=== PATIENT | female | born 1985 | race Caucasian/White ===

== ENCOUNTER 2017-06-06 12:23 | Emergency (ER) | payer MEDICAID ==
[~2017-06-06] VITALS: Ht 172.7 cm; Wt 147.4 kg
[~2017-06-06 12:23] MED LIST: GLYBURIDE 5MG TA5 MG PO; IBUPROFEN800 MG PO; LEVOTHYROXINE0.1 M1 PO; MECLIZINE 25MG25 MG PO; MEDROL 4MG. DOSE4 MG PO; PENICILLIN VK500 M1 PO; ZITHROMAX Z PA250 MG PO
--- NOTE | 2017-06-06 12:36 | Urgent Treatment Center Report ---
History of Present Issue Date/Time Seen by Provider 06/06/17 1234 Visit Reason Pt arrived:Walked Presenting Problem:C/O SORE THROAT SINCE YESTERDAY Location if Accident: Onset of symptoms date/time:/ or onset unknown for:MEDICAL HX UNKNOWN Have you (or family members/close friends) recently traveled outside the [place]? N If Yes, where/when: Have you had exposure to infectious disease within the past month? TB? Other? Specify: State that she noticed yesterday that she began to have a sore throat State that when she woke up this morning she felt feverish and she looked in the mirror and seen white patches all over her tonsils State that she has had strep several times and this feels just like it did then ALLERGIES Coded Allergies: Cephalosporins (04/04/17) Home Medications Active Scripts MECLIZINE HCL (Meclizine 25MG) 25 MG PO BID #20 TABLET Prov: 04/04/17 Azithromycin (Zithromycin (Z-MARY) 250MG Tab) 250 MG PO DAILY #6 TAB Prov: 04/04/17 Methylprednisolone (Medrol Dose Mary) 4 MG PO UD #1 MARY Prov: 04/04/17 Reported Medications Glyburide (Glyburide 5MG) 5 MG PO BID #30 Levothyroxine Sodium (Levothyroxine 0.1MG) 0.1 MG PO DAILY #30 History Medical History General CAD? No Angina: No NM: No Hypertension? No Hyperlipidemia? No CHF? No DVT? No PE? No COPD? No Asthma? No Anemia? No GERD? No Gastric ulcers? No GI Bleed? No Hernia? No Thyroid Problems? No Hypothyroidism? No CVA? No Seizures? No Diabetes? Yes Insulin Dependent: No Insulin Pump: No Home FSBS? Yes Renal Insuffiency? No UTI? No Stones? No BPH? No GB Disease: No Nephritic Syndrome? No Asplenia? No Hepatitis? No Sickle Cell Disease? No Arthritis? No Migraines? No Cataracts? No Glaucoma? No MRSA? No HIV? No TB? No Anxiety? No Depression? No Cancer? No More? 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 Physical Exam Vital Signs Vital Signs Date Time Temp Pulse Resp B/P Pulse O2 O2 Flow FiO2 Ox Delivery Rate 06/06 1231 97.0 96 16 146/95 97 General Appearance normal appearance, WD/WN, no apparent distress Ear, Nose, Throat tonsillar exudate, tonsillar swelling Respiratory Status Yes: trachea midline, chest symmetrical, non tender chest. No: respiratory distress. Cardiovascular normal exam, regular rate/rhythm Neurologic alert, normal exam, oriented x 3 Medical Decision Making LABS/Meds/Orders Pt receiving controlled substance in ED? No Results/Orders Laboratory Tests 06/06/17 1227: Group A Strep Screen NOT DETECTED Orders Procedure Date/time Status [facility] STREP SCREEN 06/06 1235 Complete Progress [facility] Progress Notes Comment Strep test was negative however exudate noted on tonsils which indicates need for antibiotic treatment Departure Departure Time of Disposition 1250 Disposition DC Home or Self Care(routine) Clinical Impression Primary Impression: Upper respiratory infection Qualifiers: URI type: acute pharyngitis Pharyngitis/tonsillitis etiology: unspecified etiology Qualified Code: J02.9 - Acute pharyngitis, unspecified Condition STABLE Referrals Eris CUELLAR,A.C. (Family): 3 Days-Call Office if no improvement Patient Instructions Sore Throat Additional Instructions * Monitor Temp. Tylenol and/or Ibuprofen as needed. ER if fever is no less than 101 despite alternating Tylenol and Ibuprofen * Encourage fluids, water, Gatorade, powerade, pedialyte if infant/toddler/or child * Warm salt water gargles for throat irritation *Warm fluids *Sore throat lozenges *Sleep elevated *humidifier or vaporizer *Flonase 2 sprays each nostril daily but may take 2-3 days to notice improvement with it *Bromfed may cause drowsiness. Know how it effect you or your child. Before driving, caring for small children or sending your child to school Follow up IMMEDIATELY for new or worsening of symptoms OR no noticeable improvement over the next 48-72 hours. 911 immediately for any life threatening symptoms such as chest pain or difficulty breathing Discharge Counseling Counseled pt/family regarding diagnosis, test results, medications/RX, home care Prescriptions Current Visit Scripts Azithromycin (Zithromycin (Z-MARY) 250MG Tab) 250 MG PO DAILY #6 TAB TAKE TWO (2) TABLETS ON DAY 1, THEN ONE (1) TABLET DAY #2 THRU #5 Methylprednisolone (Medrol Dose Mary) 4 MG PO UD #1 MARY TAKE DIRECTED ON PACKAGING at 1255
--- NOTE | 2017-06-06 12:36 | Urgent Treatment Center Report ---
History of Present Issue Date/Time Seen by Provider 06/06/17 1234 Visit Reason Pt arrived:Walked Presenting Problem:C/O SORE THROAT SINCE YESTERDAY Location if Accident: Onset of symptoms date/time:/ or onset unknown for:MEDICAL HX UNKNOWN Have you (or family members/close friends) recently traveled outside the [place]? N If Yes, where/when: Have you had exposure to infectious disease within the past month? TB? Other? Specify: State that she noticed yesterday that she began to have a sore throat State that when she woke up this morning she felt feverish and she looked in the mirror and seen white patches all over her tonsils State that she has had strep several times and this feels just like it did then ALLERGIES Coded Allergies: Cephalosporins (04/04/17) Home Medications Active Scripts MECLIZINE HCL (Meclizine 25MG) 25 MG PO BID #20 TABLET Prov: 04/04/17 Azithromycin (Zithromycin (Z-MARY) 250MG Tab) 250 MG PO DAILY #6 TAB Prov: 04/04/17 Methylprednisolone (Medrol Dose Mray) 4 MG PO UD #1 MARY Prov: 04/04/17 Reported Medications Glyburide (Glyburide 5MG) 5 MG PO BID #30 Levothyroxine Sodium (Levothyroxine 0.1MG) 0.1 MG PO DAILY #30 History Medical History General CAD? No Angina: No CO: No Hypertension? No Hyperlipidemia? No CHF? No DVT? No PE? No COPD? No Asthma? No Anemia? No GERD? No Gastric ulcers? No GI Bleed? No Hernia? No Thyroid Problems? No Hypothyroidism? No CVA? No Seizures? No Diabetes? Yes Insulin Dependent: No Insulin Pump: No Home FSBS? Yes Renal Insuffiency? No UTI? No Stones? No BPH? No GB Disease: No Nephritic Syndrome? No Asplenia? No Hepatitis? No Sickle Cell Disease? No Arthritis? No Migraines? No Cataracts? No Glaucoma? No MRSA? No HIV? No TB? No Anxiety? No Depression? No Cancer? No More? 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 Physical Exam Vital Signs Vital Signs Date Time Temp Pulse Resp B/P Pulse O2 O2 Flow FiO2 Ox Delivery Rate 06/06 1231 97.0 96 16 146/95 97 General Appearance normal appearance, WD/WN, no apparent distress Ear, Nose, Throat tonsillar exudate, tonsillar swelling Respiratory Status Yes: trachea midline, chest symmetrical, non tender chest. No: respiratory distress. Cardiovascular normal exam, regular rate/rhythm Neurologic alert, normal exam, oriented x 3 Medical Decision Making LABS/Meds/Orders Pt receiving controlled substance in ED? No Results/Orders Laboratory Tests 06/06/17 1227: Group A Strep Screen NOT DETECTED Orders Procedure Date/time Status [facility] STREP SCREEN 06/06 1235 Complete Progress [facility] Progress Notes Comment Strep test was negative however exudate noted on tonsils which indicates need for antibiotic treatment Departure Departure Time of Disposition 1250 Disposition DC Home or Self Care(routine) Clinical Impression Primary Impression: Upper respiratory infection Qualifiers: URI type: acute pharyngitis Pharyngitis/tonsillitis etiology: unspecified etiology Qualified Code: J02.9 - Acute pharyngitis, unspecified Condition STABLE Referrals Eris CUELLAR,A.C. (Family): 3 Days-Call Office if no improvement Patient Instructions Sore Throat Additional Instructions * Monitor Temp. Tylenol and/or Ibuprofen as needed. ER if fever is no less than 101 despite alternating Tylenol and Ibuprofen * Encourage fluids, water, Gatorade, powerade, pedialyte if infant/toddler/or child * Warm salt water gargles for throat irritation *Warm fluids *Sore throat lozenges *Sleep elevated *humidifier or vaporizer *Flonase 2 sprays each nostril daily but may take 2-3 days to notice improvement with it *Bromfed may cause drowsiness. Know how it effect you or your child. Before driving, caring for small children or sending your child to school Follow up IMMEDIATELY for new or worsening of symptoms OR no noticeable improvement over the next 48-72 hours. 911 immediately for any life threatening symptoms such as chest pain or difficulty breathing Discharge Counseling Counseled pt/family regarding diagnosis, test results, medications/RX, home care Prescriptions Current Visit Scripts Azithromycin (Zithromycin (Z-MARY) 250MG Tab) 250 MG PO DAILY #6 TAB TAKE TWO (2) TABLETS ON DAY 1, THEN ONE (1) TABLET DAY #2 THRU #5 Methylprednisolone (Medrol Dose Mary) 4 MG PO UD #1 MARY TAKE DIRECTED ON PACKAGING at 1251
[2017-06-06] MEDS ORDERED: ZITHROMAX Z PA250 MG PO (12:54)
[2017-06-06] MEDS ORDERED: MEDROL 4MG. DOSE4 MG PO (12:54)
[2017-06-06 12:56] VITALS: BP 146/95
--- OUTSIDE RECORDS SUMMARY | 2017-06-08 16:46 | External Medical Summary Rpt | CCD ---
Author Author , JEAN Zuñiga JEAN Address Unknown Phone [email or web address] Care Team Providers Care Electronic Industrial Controls Mechanic Name Role Phone A Gwyn LI MD PSC, A Unavailable Unavailable Gwyn LI MD [facility] TER, HUSEYIN TER Unavailable Unavailable [facility], [facility] Unavailable Unavailable [facility], [facility] Unavailable Unavailable [facility], Unavailable Unavailable [facility] KILPELA, KILPELA Unavailable Unavailable KILPELA JEA, KILPELA Unavailable Unavailable JEA KILPELA JEA, KILPELA Unavailable Unavailable JEA MOR SAURAV, MOR SAURAV Unavailable Unavailable [facility], Unavailable Unavailable [facility], Unavailable Unavailable [facility] Purpose Continuity of Care Document - 12-31-2013 through 2016 Problems Code Diagnosis DOS Provider Status H6691 OTITIS 04-04-2017 [facility]NSPEC[facility] RIGHT EAR R42 DIZZINESS 04-04-2017 [facility] GIDDINESS [facility] 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 COMPLICATIO NS K029 DENTAL 02-23-2017 [facility] UNSPEC[facility] R17697 PAIN IN 08-29-2016 A Gwyn LI LEFT FOOT [facility] J0190 ACUTE 09-02-2015 [facility] J309 ALLERGIC 09-01-2015 [facility] RHINITIS [facility] UNSPECIFIED GROUP R05 COUGH 09-01-2015 [facility] N390 URINARY 06-10-2015 Joy LI TRACT [facility] INFECTION SITE NOT SPECIFIED R300 DYSURIA 06-10-2015 A Gwyn LI MD PSC 7820 DISTURBANCE 08-30-2014 A Gwyn LI OF SKIN [facility] SENSATION 3829 UNSPECIFIED 07-29-2014 Joy LI OTITIS PSC MEDIA 2449 UNSPECIFIED 07-15-2014 [facility] HYPOTHYROID ISM 42693 DIAB W/O 07-15-2014 [facility] COMP TYPE [facility]AGNO[facility] II/UNS NOT STATED UNCNTRL V0481 NEED 06-14-2014 Joy LI PROPHYLACTI [facility] C VACCINATION &INOCULATIO N FLU 96735 NAUSEA WITH 08-06-2014 [facility] DODD VOMITING V2501 GENERAL 02-08-2014 [facility] DODD COUNSELING PRESCRIPTIO N ORAL CONTRACEPTS 7906 OTHER 01-02-2014 [facility]ELD [facility] ABNORMAL BLOOD CHEMISTRY 6253 DYSMENORRHE 12-31-2013 [facility] DODD A Medications Na ND Rx Da Fi Fi Am Da Di Ph RX Ph St me C No te ll ll ou ys ag ar # ys at rm s nt no ma ic us Or Da si cy ia de te s n re d ME 65 08 09 20 10 00 RI Ac CL 16 -1 -0 .0 00 TE ti IZ 20 0- 8- 00 01 ve IN 44 20 20 19 AI E 21 17 17 50 D 25 0 47 PH AR MG MA CY TA BL #3 ET 93 8 AZ 50 08 09 6. 5 00 RI Ac IT 11 -1 -0 00 00 TE ti HR 10 0- 8- 0 01 ve OM 78 20 20 19 AI YC 76 17 17 50 D IN 6 48 PH AR 25 MA 0 CY MG #3 TA 93 BL 8 ET ME 00 08 09 21 6 00 RI Ac TH 78 -1 -0 .0 00 TE ti YL 15 0- 8- 00 01 ve IN 02 20 20 19 AI ED 20 17 17 50 D NI 7 49 PH SO AR LO MA NE CY 4 #3 MG 93 8 DO SE PK IB 67 07 07 30 8 00 RI Ac UP 87 -0 -2 .0 00 TE ti RO 70 1- 8- 00 01 ve FE 32 20 20 19 AI N 10 17 17 01 D 80 5 74 PH 0 AR MG MA CY TA BL #3 ET 93 8 PE 16 07 07 30 10 00 RI Ac NI 71 -0 -2 .0 00 TE ti CI 40 1- 8- 00 01 ve LL 23 20 20 19 AI IN 50 17 17 01 D 1 75 PH VK AR MA 50 CY 0 MG #3 93 TA 8 BL ET GL 00 06 07 30 30 00 RI Ac YB 09 -2 -1 .0 00 TE ti UR 39 1- 4- 00 01 ve ID 36 20 20 14 AI E 41 17 17 44 D 5 0 11 PH MG AR MA TA CY BL ET #3 93 8 LE 00 06 07 30 30 00 RI Ac VO 37 -2 -1 .0 00 TE ti TH 81 1- 4- 00 01 ve YR 80 20 20 14 AI OX 97 17 17 44 D IN 7 12 PH E AR 10 MA 0 CY MC G #3 TA 93 BL 8 ET GL 00 04 05 30 30 00 RI Ac YB 09 -1 -0 .0 00 TE ti UR 39 1- 5- 00 01 ve ID 36 20 20 14 AI E 41 17 17 44 D 5 0 11 PH MG AR MA TA CY BL ET #3 93 8 LE 00 04 05 30 30 00 RI Ac VO 37 -1 -0 .0 00 TE ti TH 81 1- 5- 00 01 ve YR 80 20 20 14 AI OX 90 17 17 44 D IN 1 12 PH E AR 10 MA 0 CY MC G #3 TA 93 BL 8 ET LE 00 02 03 30 30 00 RI Ac VO 37 -2 -2 .0 00 TE ti TH 81 3- 4- 00 01 ve YR 80 20 20 14 AI OX 90 17 17 44 D IN 1 12 PH E AR 10 MA 0 CY MC G #3 TA 93 BL 8 ET GL 00 02 03 30 30 00 RI Ac YB 09 -2 -2 .0 00 TE ti UR 39 3- 4- 00 01 ve ID 36 20 20 14 AI E 41 17 17 44 D 5 0 11 PH MG AR MA TA CY BL ET #3 93 8 Immunization Name Date Rout CVX Reac Dose Comm Prov Is Faci e tion ent ider Refu lity Give sed n IIV3 10-2 141 JOYCE No A C 0-20 S WRIG VACC 14 SAURAV HT INE SPLI PSC T VIRU S 0.5 ML DOSA GE IM USE Procedures Procedure DOS Code Location Performer Comment UNCLASSIF J3490 [facility] UNCLASSIF J3490 [facility] URINLS 57405 A C ALEXSANDRA DIP 5 JEN CUELLAR JEA STICK/TAB PSC LET REAGNT NON-AUTO MICRSCPY HEMOGLOBI 01949 A C ALEXSANDRA N 4 JEN CUELLAR JEJoy GLYCOS[place] [address] [facility] 4 DIAGNOSTI DIAGNOSTI STIMULATI CS CS NG HORMONE TSH BASIC 93966 [facility] METABOLIC 4 DIAGNOSTI DIAGNOSTI PANEL CS CS CALCIUM TOTAL IM ADM 24991 A C MOR SAURAV PRQ ID 4 JEN CUELLAR SUBQ/IM PSC NJXS 1 VACCINE IIV3 40637 A C MOR SAURAV VACCINE 4 JEN CUELLAR SPLIT PSC VIRUS 0.5 ML DOSAGE IM USE HEMOGLOBI 54197 FIELD AMB FIELD AMB N 4 AURAA SANDRO A1C BLOOD 83751 KILPELA KILPELA COUNT 4 JEA JEJoy COMPLETE AUTO&AUTO DIFRNTL WBC Encounters Encounter Start End Date Code Location Performer Type Date [facility] T OFFICE 46788 [facility] VISIT 5 INC MINUTES OFFICE 82372 [facility] 5 INC MINUTES [facility] T OFFICE 85331 A C KILPELA OUTPATIEN 7 7 JEN CUELLAR T VISIT PSC 15 MINUTES OFFICE 20528 [facility] OUTPATIEN 6 6 PHYSICIAN T VISIT S GROUP 15 MINUTES OFFICE [address] [facility] TER OUTPATIEN 6 6 PHYSICIAN T VISIT S GROUP 15 MINUTES OFFICE 26498 A C KILPELA OUTPATIEN 5 5 JEN DODD T VISIT PSC 15 MINUTES OFFICE 04783 A C [facility] OUTPATIEN 5 5 JEN DODD T VISIT PSC 15 MINUTES OFFICE 80161 A C K[facility]LA OUTPATIEN 4 4 JEN DODD T VISIT PSC 15 MINUTES OFFICE 90872 A C KILPELA OUTPATIEN 4 4 JEN DODD T VISIT PSC 15 MINUTES OFFICE 80692 KIL[facility]LA KILPELA OUTPATIEN 4 4 YOUSIF DODD T VISIT 15 MINUTES OFFICE 36400 KILPELA KILPELA OUTPATIEN 4 4 YOUSIF JEA T VISIT 15 MINUTES OFFICE 79090 K[facility] KILPELA OUTPATIEN 4 4 YOUSIF Ravi VISIT 15 MINUTES OFFICE 89594 [facility] KILPELA OUTPATIEN 4 4 YOUSIF Ravi VISIT 10 MINUTES OFFICE 82335 K[facility] KILPELA OUTPATIEN 4 4 YOUSIF Ravi VISIT 15 MINUTES OFFICE 29197 KILPELA KILPELA OUTPATIEN 4 4 YOUSIF Ravi VISIT 15 MINUTES
--- OUTSIDE RECORDS SUMMARY | 2017-06-08 16:46 | External Medical Summary Rpt | CCD ---
Demographics Preferred Language Czech Marital Status Unknown Jehovah'S Witness Affiliation Unknown Race Unknown Ethnic Group Unknown Author Author , JEAN PENA Address Unknown Phone Immunization No patient found.
--- OUTSIDE RECORDS SUMMARY | 2017-06-08 16:46 | External Medical Summary Rpt ---
Author Author JEAN Montgomery, JEAN Montgomery Organization [employer] Address Unknown Phone Unavailable
--- OUTSIDE RECORDS SUMMARY | 2017-06-08 16:46 | External Medical Summary Rpt | CCD ---
Author Author , JEAN Zuñiga JEAN Address Unknown Phone [email or web address] Care Team Providers Care Avionics Technician Name Role Phone A Gwyn LI MD PSC, A Unavailable Unavailable Gwyn LI MD [facility] FONT[facility] TER, HUSEYIN TER Unavailable Unavailable [facility], FIELD AMB Unavailable Unavailable [facility], [facility] Unavailable Unavailable [facility], Unavailable Unavailable [facility] KILPELA, KILPELA Unavailable Unavailable KILPELA [...] 02-23-2017 [facility] UNS[facility] W99949 PAIN IN 08-29-2016 A Gwyn LI LEFT FOOT [facility] J0190 ACUTE 09-02-2015 [facility] UNSPECIFIED GROUP J309 ALLERGIC 09-01-2015 [facility] RHINITIS [facility]YS[facility]ANS UNSPECIFIED GROUP R05 COUGH 09-01-2015 [facility] N390 URINARY 06-10-2015 Joy LI TRACT [facility] INFECTION SITE NOT SPECIFIED R300 DYSURIA 06-10-2015 A Gwyn LI MD PSC 7820 DISTURBANCE 08-30-2014 A Gwyn LI OF SKIN [facility] SENSATION 3829 UNSPECIFIED 07-29-2014 Joy LI OTITIS PSC MEDIA 2449 UNSPECIFIED 07-15-2014 [facility] HYPOTHYROID ISM 86102 DIAB W/O 07-15-2014 [facility] TYPE [facility] II/UNS NOT STATED UNCNTRL V0481 NEED 06-14-2014 Joy LI PROPHYLACTI [facility] C VACCINATION &INOCULATIO N FLU 03190 NAUSEA WITH 08-06-2014 ALEXSANDRA DODD VOMITING V2501 [...] YL 15 0- 8- 00 01 ve [place] 02 20 20 19 AI ED 20 [...] [facility] INC URINLS 06746 A C ALEXSANDRA DIP 5 JEN CUELLAR JEA STICK/TAB PSC LET REAGNT NON-AUTO MICRSCPY HEMOGLOBI 97014 A C ALEXSANDRA N 4 JEN CUELLAR JEJoy GLYCOSY[place] [address] [facility] 4 DIAGNOSTI DIAGNOSTI STIMULATI CS CS NG HORMONE TSH BASIC 26173 [facility] METABOLIC 4 DIAGNOSTI DIAGNOSTI PANEL CS CS CALCIUM TOTAL IM ADM 18854 A C MOR SAURAV PRQ ID 4 JEN CUELLAR SUBQ/IM PSC NJXS 1 VACCINE IIV3 73854 A C MOR SAURAV VACCINE 4 JEN CUELLAR SPLIT PSC VIRUS 0.5 ML DOSAGE IM USE HEMOGLOBI 91710 FIELD AMB FIELD AMB N 4 AURAA SANDRO A1C BLOOD 51067 KILPELA KILPELA COUNT 4 JEA JEJoy COMPLETE AUTO&AUTO DIFRNTL WBC Encounters Encounter Start End Date Code Location Performer Type Date [facility] T OFFICE 55266 [facility] VISIT 5 INC MINUTES OFFICE 86507 [facility] VISIT 5 INC MINUTES [facility] T OFFICE 99968 A C KILPELA OUTPATIEN 7 7 JEN CUELLAR T VISIT PSC 15 MINUTES OFFICE 66028 [facility] OUTPATIEN 6 6 PHYSICIAN T VISIT S GROUP 15 MINUTES OFFICE [address] [facility] TER OUTPATIEN 6 6 PHYSICIAN T VISIT S GROUP 15 MINUTES OFFICE 24652 A C KILPELA OUTPATIEN 5 5 JEN DODD T VISIT PSC 15 MINUTES OFFICE 10084 A C KILPELA OUTPATIEN 5 5 JEN DODD T VISIT PSC 15 MINUTES OFFICE 68087 A C KILPELA OUTPATIEN 4 4 JEN DODD T VISIT PSC 15 MINUTES OFFICE 35150 A C KILPELA OUTPATIEN 4 4 JEN DODD T VISIT PSC 15 MINUTES OFFICE 45822 K[facility] KILPELA OUTPATIEN 4 4 YOUSIF DODD T VISIT 15 MINUTES OFFICE 16695 K[facility]LA KILPELA OUTPATIEN 4 4 YOUSIF JEA T VISIT 15 MINUTES OFFICE 54673 K[facility]LA KILPELA OUTPATIEN 4 4 YOUSIF Ravi VISIT 15 MINUTES OFFICE 72332 [facility] KILPELA OUTPATIEN 4 4 YOUSIF Ravi VISIT 10 MINUTES OFFICE 05440 [facility] KILPELA OUTPATIEN 4 4 YOUSIF Ravi VISIT 15 MINUTES OFFICE 53463 K[facility]LA KILPELA OUTPATIEN 4 4 YOUSIF Ravi VISIT 15 MINUTES
--- OUTSIDE RECORDS SUMMARY | 2017-06-08 16:46 | External Medical Summary Rpt | CCD ---
Author Author CHUCK Address Unknown Phone Purpose Continuity of Care Document - through 2016
--- OUTSIDE RECORDS SUMMARY | 2017-06-08 16:46 | External Medical Summary Rpt | CCD ---
Demographics Preferred Language Anguillan Marital Status Unknown Judaism Affiliation Unknown Race Unknown Ethnic Group Unknown Author Author , JEAN PENA Address Unknown Phone Immunization No patient found.
--- OUTSIDE RECORDS SUMMARY | 2017-06-08 16:46 | External Medical Summary Rpt | CCD ---
Author Author CHUCK Address Unknown Phone [email or web address] Purpose Continuity of Care Document - through 2016
== END 2017-06-06 12:57 | disposition home or self-care (01) ==
LOC: UTC 12:23